=== PATIENT | male | born 1965 | race Caucasian/White ===

== ENCOUNTER 2017-04-02 15:28 | Emergency (ER) | payer OTHER, SELFPAY ==
[2017-04-02 16:46] VITALS: BP 133/57; PULSE 75; RESP 22; TEMP 36.6; O2SAT 97; BMI 41.3
--- NOTE | 2017-04-02 17:06 | XR_ITS ---
XR ankle LT min 3V HISTORY: Pain following injury ITS.REASON: FELL AND TWISTED ANKLE ORDERING PHYSICIAN: Shalha Rainey PATIENT AGE: 51 years COMPARISON: None FINDINGS: There is an old oblique mildly displaced fracture involving the distal fibula. There is 3 mm dorsal displacement of the distal fracture fragment. The fracture line ends at the level of the ankle joint. A small fragment is noted between the distal tibia and fibula. The ankle mortise does not appear widened. IMPRESSION: Mildly displaced distal fibular fracture.
--- NOTE | 2017-04-02 18:01 | HMH.EDUTC ---
[facility] [place]: Fracture of distal fibula Qualifiers: Encounter type: initial encounter Fracture type: closed Fracture morphology: unspecified fracture morphology Laterality: left Qualified Code(s): S82.832A - Other fracture of upper and lower end of left fibula, initial encounter for closed fracture Disposition: Home, Self-Care Condition on Discharge: Good Instructions: How to Use Crutches, DI for Ankle Fracture, How To Perform RICE (Rest, Ice, Compress, Elevate), How to Take Care of Your Splint Additional Instructions: * nonweight bearing until you see ortho * Rest * ice 15-20 mins 3-4 times a day * splint until you see ortho. Be sure to read how to care for your splint instructions attached. Be sure to check your toes periodically for normal color, temperature, capillary refill * Elevate as discussed as much as possible to help reduce swelling and therefore, pain * Ibuprofen every 6 hours as needed for pain and inflammation. If you need something more, you can take tylenol every 4 hours as needed as long as your primary care provider has told you it is ok to take both. * I understand you want to follow up with the ortho your daughter sees in [facility]. Call them tomorrow. Report seen in [facility], diagnosed Distal Fibula fracture, in orthoglass splint and need follow up appt. We will give you the CD of images to take with you to that appt. if they can not see you for any reason, I have included a referral to the orthopedic doctor here at [facility]. Referrals: Mervin Lind MD [Staff Physician] - (If you can not see ortho in [facility]. Call this office. Tell them the same thing. If you can not get in anywhere or you are getting worse, be sure to follow up here immediately) Time of Disposition: 18:22 Medical Decision Making Vital Signs: 04/02/17 16:46 Temperature 98 F Temperature Source Temporal Artery Scan Pulse Rate [Right Radial] 75 Respiratory Rate 22 Blood Pressure [Right Arm] 133/57 Blood Pressure Mean [Right Arm] 82 Blood Pressure Source [Right Arm] Automatic Cuff Blood Pressure Position [Right Arm] Sitting 02 Sat by Pulse Oximetry 97 Oxygen Delivery Method Room Air - Radiology Data #1 Image(s): Ankle (left) Image Reviewed: Yes I reviewed the patient's radiology image, Yes I reviewed the patient's radiology image w/the ED provider distal fibula fracture discussed w/ MIO Davis MD - Marcelo Inquiry Pt receiving controlled substance: No [facility] [place] - General Stated complaint: ao [id number] injured l ankle Time Seen by Provider: 04/02/17 18:01 Mode of Arrival: Wheelchair Source of Information: Patient Limitations: No Limitations Description of Symptoms (Recalled from Triage Doc. by RN): FELL AND TWISTED HIS LEFT ANKLE YESTERDAY. HEENT Symptoms (Recalled from RN notes): No Resp Symptoms (Recalled from RN notes): No Skin Symptoms (Recalled from RN notes): No MS Symptoms (Recalled from RN notes): Yes (TWISTED LEFT ANKLE) Functional Status (Recalled from RN notes): NA - History of Present Illness Provider Complaint: Here w/ c/o left ankle pain. Stepped out of the truck around 2-3pm, turned ankle, immediate pain. Hardly able to bear weight unless on heel and then only a little . Denies N/T. limited ROM left ankle. Hasn't taken or tried anything for pain and doesn't feel he needs anything now. Worried about a fracture. - Related Data Allergies Allergy/AdvReac Type Severity Reaction Status Date / Time No Known Allergies Allergy Unverified 03/03/17 14:35 - Worker's Comp Is this a Worker's Comp case?: No [facility] History I have reviewed the patient's past medical history: Yes Medical History: Reports:: Chronic Obstructive Pulmonary Disease (COPD), Diabetes Mellitus Type 2, Gastroesophageal Reflux Disease(GERD), Hyperlipidemia, Hypertension Other Medical History: Reports: Thyroid Disease - *Social History Smoking Status: Current every day smoker Tobacco Type: cigarettes A
--- NOTE | 2017-04-02 18:07 | ED_ITS ---
[facility] [place] Clinical Impression: Fracture of distal fibula Qualifiers: Encounter type: initial encounter Fracture type: closed Fracture morphology: unspecified fracture morphology Laterality: left Qualified Code(s): S82.832A - Other fracture of upper and lower end of left fibula, initial encounter for closed fracture Disposition: Home, Self-Care Condition on Discharge: Good Instructions: How to Use Crutches, DI for Ankle Fracture, How To Perform RICE ( Rest, Ice, Compress, Elevate), How to Take Care of Your Splint Additional Instructions: * nonweight bearing until you see ortho * Rest * ice 15-20 mins 3-4 times a day * splint until you see ortho. Be sure to read how to care for your splint instructions attached. Be sure to check your toes periodically for normal color , temperature, capillary refill * Elevate as discussed as much as possible to help reduce swelling and therefore , pain * Ibuprofen every 6 hours as needed for pain and inflammation. If you need something more, you can take tylenol every 4 hours as needed as long as your primary care provider has told you it is ok to take both. * I understand you want to follow up with the ortho your daughter sees in [facility]. Call them tomorrow. Report seen in [facility], diagnosed Distal Fibula fracture, in orthoglass splint and need follow up appt. We will give you the CD of images to take with you to that appt. if they can not see you for any reason , I have included a referral to the orthopedic doctor here at [facility]. Referrals: Mervin Lind MD [Staff Physician] - (If you can not see ortho in [facility]. Call this office. Tell them the same thing. If you can not get in anywhere or you are getting worse, be sure to follow up here immediately) Time of Disposition: 18:22 Medical Decision Making Vital Signs: 04/02/17 16:46 Temperature 98 F Temperature Source Temporal Artery Scan Pulse Rate [Right Radial] 75 Respiratory Rate 22 Blood Pressure [Right Arm] 133/57 Blood Pressure Mean [Right Arm] 82 Blood Pressure Source [Right Arm] Automatic Cuff Blood Pressure Position [Right Arm] Sitting 02 Sat by Pulse Oximetry 97 Oxygen Delivery Method Room Air - Radiology Data #1 Image(s): Ankle (left) Image Reviewed: Yes I reviewed the patient's radiology image, Yes I reviewed the patient's radiology image w/the ED provider distal fibula fracture discussed w/ Dr. Carpenter, MIO CARL - Marcelo Inquiry Pt receiving controlled substance: No [facility] [place] - General Stated complaint: ao [id number] injured l ankle Time Seen by Provider: 04/02/17 18:01 Mode of Arrival: Wheelchair Source of Information: Patient Limitations: No Limitations Description of Symptoms (Recalled from Triage Doc. by RN): FELL AND TWISTED HIS LEFT ANKLE YESTERDAY. HEENT Symptoms (Recalled from RN notes): No Resp Symptoms (Recalled from RN notes): No Skin Symptoms (Recalled from RN notes): No MS Symptoms (Recalled from RN notes): Yes (TWISTED LEFT ANKLE) Functional Status (Recalled from RN notes): NA - History of Present Illness Provider Complaint: Here w/ c/o left ankle pain. Stepped out of the truck around 2-3pm, turned ankle, immediate pain. Hardly able to bear weight unless on heel and then only a little . Denies N/T. limited ROM left ankle. Hasn't taken or tried anything for pain and doesn't feel he needs anything now. Worried about a fracture. - Related Data Allergies Allergy/AdvReac Type Severity Reaction Status Date / Time No
== END 2017-04-02 19:01 | disposition home or self-care (01) ==
PROVIDERS: Emergency Provider Nurse Practitioner Family; Family Provider Nurse Practitioner Family; PCP Nurse Practitioner Family
DX: S82.832A Other fracture of upper and lower end of left fibula, initial encounter for closed fracture (principal); W17.89XA Other fall from one level to another, initial encounter; Y93.9 Activity, unspecified; Y92.410 Unspecified street and highway as the place of occurrence of the external cause; J44.9 Chronic obstructive pulmonary disease, unspecified; E11.9 Type 2 diabetes mellitus without complications; I10 Essential (primary) hypertension; F17.210 Nicotine dependence, cigarettes, uncomplicated
CPT/HCPCS: 27788; 73610; 99202; 99203